=== PATIENT | female | born 1960 | race Two or more races ===

== ENCOUNTER 2017-03-08 16:26 | Inpatient (IN) | payer OTHER ==
[~2017-03-08] VITALS: Ht 152.4 cm; Wt 74.5 kg
[2017-03-08 17:00] VITALS: BP 150/64; PULSE 94; RESP 18
[2017-03-08] MEDS: HYDROCODONE/APAP (10/325) TAB PO PRN ×2 (17:11→21:09)
[2017-03-08 17:38] LABS: ADD UMIC YES; URINE BILIRUBIN (Dip) NEGATIVE (NEGATIVE); URINE BLOOD (Dip) TRACE (NEGATIVE); URINE COLOR LT. YELLOW (YELLOW); URINE GLUCOSE (Dip) NEGATIVE (NEGATIVE); URINE KETONES (Dip) NEGATIVE (NEGATIVE); URINE LEUKOCYTE ESTERASE (Dip) TRACE (NEGATIVE); URINE NITRITE (Dip) NEGATIVE (NEGATIVE); URINE TOTAL PROTEIN (Dip) NEGATIVE (NEGATIVE); URINE UROBILINOGEN (Dip) 0.2 E.U./dL (0.1-1.0)
[2017-03-08] MEDS: RIVAROXABAN 10 MG TABLET PO SCH (17:55)
[2017-03-08] MEDS: metFORMIN 500 MG TAB PO SCH (17:56)
[2017-03-08] MEDS ORDERED: GLUCAGON 1 MG INJ IM PRN (18:00)
[2017-03-08] MEDS ORDERED: DEXTROSE 50% 50 ML SYRINGE IV PRN ×2 (18:00)
[2017-03-08] MEDS ORDERED: GLUCOSE GEL 15 GRAM TUBE PO PRN ×2 (18:00)
[2017-03-08] MEDS: Insulin NOVOLOG SS MODERATE Algorithm (SS with meals and bedtime) SC SCH ×2 (18:00→21:00)
[2017-03-08] MEDS ORDERED: GLUCOSE GEL 15 GRAM TUBE BUCCAL PRN (18:00)
[2017-03-08 18:03] LABS: BACTERIA,URINE FEW; URINE RBCS 0-2 /HPF (0)
[2017-03-08 20:00] VITALS: BP 134/63; RESP 18
[2017-03-08] MEDS: BUSPIRONE 5 MG TAB PO SCH (20:22)
[2017-03-08] MEDS: ATORVASTATIN 40 MG TAB PO SCH (20:22)
[2017-03-08] MEDS: ZOLPIDEM 5 MG TAB PO PRN (22:05)
[2017-03-09] MEDS: ACCUCHECK AT 2AM (Patients on SS coverage) XX SCH (01:56)
[2017-03-09] MEDS: HYDROCODONE/APAP (10/325) TAB PO PRN ×3 (03:48→19:09)
[2017-03-09] MEDS: PANTOPRAZOLE (EC) 40 MG TAB PO SCH (06:26)
[2017-03-09 07:36] LABS: ADD SCAN DIFF NO
[2017-03-09 07:45] LABS: BASOPHILS % 0.3 % (0.0-2.0); EOSINOPHILS % 0.4 % (0.0-7.0); HEMATOCRIT 30.9 % (37.0-47.0); MEAN CORPUSCULAR HEMOGLOBIN 30.5 pg (29.0-33.0); MEAN CORPUSCULAR HGB CONC 32.4 g/dl (32.0-37.0); MEAN CORPUSCULAR VOLUME 94.2 fl (82.0-101.0); MEAN PLATELET VOLUME 10.4 fl (7.4-10.4); MONOCYTE # 0.7 10^3/ul (0.3-0.9); MONOCYTES % 7.2 % (0.0-11.0); NEUTROPHIL # 6.8 10^3/ul (1.6-7.5); NEUTROPHILS % 70.7 % (39.0-77.0); PLATELET COUNT 314 10^3/UL (140-415); RED BLOOD COUNT 3.28 10^6/ul (4.20-5.40); RED CELL DISTRIBUTION WIDTH 13.2 % (11.5-14.5); WHITE BLOOD COUNT 9.6 10^3/ul (4.8-10.8)
[2017-03-09 07:58] LABS: ALBUMIN 3.7 g/dl (3.3-4.9); ALBUMIN/GLOBULIN RATIO 1.05; BILIRUBIN,INDIRECT 1.6 mg/dl (0-1.1); BILIRUBIN,TOTAL 1.6 mg/dl (0.2-1.3); CALCIUM 8.8 mg/dl (8.4-10.2); CREATININE 0.57 mg/dl (0.44-1.00); POTASSIUM 3.8 mmol/L (3.5-5.1); TOTAL PROTEIN 7.2 g/dl (6.1-8.1)
[2017-03-09] MEDS: metFORMIN 500 MG TAB PO SCH ×2 (07:59→17:27)
[2017-03-09 08:00] VITALS: BP 131/72; PULSE 92; RESP 18
[2017-03-09] MEDS: Insulin NOVOLOG SS MODERATE Algorithm (SS with meals and bedtime) SC SCH ×4 (08:02→20:20)
[2017-03-09] MEDS: SERTRALINE 50 MG TAB PO SCH (09:03)
[2017-03-09] MEDS: BUSPIRONE 5 MG TAB PO SCH ×2 (09:03→20:16)
[2017-03-09] MEDS: MELOXICAM 15 MG TAB PO SCH (09:03)
[2017-03-09] MEDS ORDERED: HYDROCODONE/APAP (10/325) TAB PO PRN (09:30)
[2017-03-09] MEDS: oxyCODONE 5 MG TAB PO PRN ×2 (13:14→22:00)
--- NOTE | 2017-03-09 13:32 | HP ---
DATE OF ADMISSION: 03/08/2017 PHYSICAL MEDICINE AND REHABILITATION HISTORY AND PHYSICIAN/PHYSICIAN POST- ADMISSION ASSESSMENT DATE OF VISIT: 03/09/2017 REHABILITATION IMPAIRMENT GROUP: Status post left total knee replacement. CHIEF COMPLAINT: Impaired mobility, left knee pain. HISTORY OF PRESENT ILLNESS: This is an obese 56-year-old female with past medical history significant for hypertension, hyperlipidemia, diabetes mellitus type 2, history of anxiety and depression, and osteoarthritis, who also has history of a work related injury to her left knee originally in January 2012, with progressively worsening left knee pain and worsening overall mobility that failed conservative treatment and elected to proceed with left knee surgery. The patient went to the OR on 03/04/2016 and underwent left total knee replacement. No reported intraoperative complications. Postoperatively, she is recommended full weightbearing with left lower extremity knee immobilizer when out of bed. Her postoperative course was complicated by anemia as well as significant postoperative pain requiring IV pain medications and followed by pain management team. The patient was noted to have a significant overall functional decline with physical and occupational therapies. Currently, she is requiring moderate assistance for most of her ADLs as well as her basic mobility and ambulating 60 feet with a walker. Due to her overall significant functional decline and ongoing medical comorbidities, she was thought to benefit from acute inpatient rehabilitation. PAST MEDICAL AND PAST SURGICAL HISTORY: As stated in history of present illness including history of hypertension, diabetes, hyperlipidemia, obesity, history of anxiety, depression and history of osteoarthritis. FAMILY HISTORY: Noncontributory. SOCIAL HISTORY: Denies current toxic habits. The patient reports living with her in a first floor apartment. The patient reports she was previously independent for all functional mobility and self-care ADLs and used a cane for ambulation. MEDICATIONS ON ADMISSION: 1. Pat[place] 10/325mg, 1 tablet q.4 hours as needed for pain. 2. Meloxicam 15 mg oral daily. 3. Zoloft 50 mg oral daily. 4. Protonix 40 mg daily. 5. Lipitor 40 mg oral at bedtime. 6. BuSpar 15 mg oral twice daily. 7. Insulin sliding scale. 8. Metformin 1000 mg oral twice daily. 9. Xarelto 10 mg oral daily. 10. Atarax 10 mg q.6 hours as needed for itching. 11. Ambien as needed. ALLERGIES: NO KNOWN DRUG ALLERGIES. LABORATORY DATA: Admission labs today show hemoglobin 10, hematocrit 30.9, WBC 9.6, platelets 314. Sodium 136, potassium 3.8, BUN 15, creatinine 0.57, total bilirubin 1.6, indirect bilirubin 1.6, alkaline phosphatase 133. REVIEW OF SYSTEMS: CONSTITUTIONAL: Denies fevers or chills. EYES: Denies pain or discharge. EARS, NOSE AND THROAT: Denies changes in hearing, no difficulty swallowing. RESPIRATORY: Denies shortness of breath, no cough. CARDIOVASCULAR: No chest pain, no palpitations. GASTROINTESTINAL: Denies abdominal pain, no nausea or vomiting. Reports last bowel movement yesterday. GENITOURINARY: Denies dysuria or hematuria. NEUROLOGICAL: Denies any new focal weakness or new paresthesias. MUSCULOSKELETAL: Reports severe pain in the left knee as well as generalized pain throughout. SKIN: Denies new rashes or itching. PSYCHIATRIC: Significant for history of anxiety and depression. Review of systems otherwise negative. PHYSICAL EXAMINATION: VITAL SIGNS: Blood pressure 134/63, respiratory rate 18, heart rate is 93, temperature 98.6 Fahrenheit, O2 saturation 94% on room air. GENERAL: The patient is obese, awake, alert, in no acute distress. HEENT: Normocephalic, atraumatic. Mucous membranes moist. Sclera anicteric. NECK: Supple, nontender. RESPIRATORY: Lungs are clear to anterior auscultation. No wheezing or crackles. No accessory muscle use. CARDIOVASCULAR: Regular rate and rhythm, audible S1, S2. ABDOMEN: Soft, nontender. Bowel sounds present. No masses palpated. EXTREMITIES: No cyanosis. The left lower extremity is immobilized in a knee immobilizer. There is no significant distal edema. SKIN: The left knee surgical site not examined, has dressing in place. Per pictures has larissa with some surrounding redness, no drainage. PSYCHIATRIC: Oriented c3. Affect and mood currently appear appropriate. NEUROLOGIC/MUSCULOSKELETAL: Overall limited by patient reporting severe overall pain throughout. She has decreased active range of motion in the bilateral shoulders, reports this is chronic. No new joint effusions or joint redness. Antigravity strength overall in the bilateral upper extremities and the right lower extremity. She has active dorsiflexion and plantar flexion on the left and wiggles toes. Left lower extremity proximal testing limited by current knee immobilizer in place and pain. She denies any new sensory changes. IMPRESSION: 1. Status post left knee work related injury with left knee pain, failing conservative treatment, now status post left total knee replacement. 2. Impaired mobility, gait and balance. 3. Impaired self-care activities of daily living. 4. Acute postoperative pain on top of baseline chronic pain syndrome. 5. Obesity. 6. Anemia. 7. Hypertension. 8. Hyperlipidemia. 9. Diabetes mellitus type 2. 10. Anxiety and depression PLAN: 1. The patient will be admitted for inpatient comprehensive interdisciplinary rehabilitation to address impairments and medical conditions listed above, while assessing equipment needs and compensatory strategies with coordinated interdisciplinary services that will include physical and occupational therapies and close monitoring and treatment with 24-hour rehabilitation nursing. The patient is anticipated to be able to participate 3 hours daily of physical and occupational therapies for at least 5 out of 7 days per week. This program will be performed under the direction of frameman. 2. Begin physical therapy for bed mobility, transfers, balance training, gait training with assistive devices as needed. 3. Begin occupational therapy for activities of daily living, functional transfers, adaptive equipment evaluation. 4. Rehabilitation nursing to provide the patient education regarding current medications as they relate to medical illness. Monitor blood sugars. Monitor for signs or symptoms of hyper or hypoglycemia. Monitor pain. Monitor bowel and bladder programs and administer such programs and reinforce those activities with therapies. 5. Dr. Becerra and associates to follow for management of medical comorbidities. 6. For hypertension, continue current medical management. We will monitor blood pressures and internal medicine to adjust further as needed. 7. For diabetes mellitus, Internal medicine is to medically manage. Monitor blood sugars. 8. For acute postoperative pain with chronic pain syndrome at baseline, currently her pain appears uncontrolled. We will increase the [place] to 2 tabs for severe pain and also add immediate release oxycodone as needed and adjust further as needed. May benefit from starting a longer acting agent. Will monitor. 9. For anemia, monitor hemoglobin and hematocrit. Internal medicine to medically manage. 10. For deep venous thrombosis prophylaxis, she is on Xarelto. 11. For gastrointestinal prophylaxis, continue proton pump inhibitor. 12. For anxiety and depression, continue current medical management and will closely monitor mood. REHABILITATION GOALS: Improve bed mobility, transfers, gait and self-care ADLs to at least supervision level with assistive device and adaptive equipment as needed. ESTIMATED LENGTH OF STAY: Approximately 10 to 14 days. Her case will be discussed at the weekly interdisciplinary conference. ANTICIPATED DISPOSITION: Home with family. PROGNOSIS: At the current time, this inpatient hospital rehabilitation stay is medically necessary to achieve important health and functional goals. The patient requires frequent physician visits, 24-hour rehabilitation nursing and a coordinated intensive rehabilitation program as described above to address complex medical, nursing and rehabilitation needs. The patient has a good prognosis for benefiting from this program and returning to home and community. REHABILITATION PHYSICIAN POST-ADMISSION ASSESSMENT REVIEW: I have had the opportunity to examine the patient within 24 hours of admission and have reviewed the preadmission assessment and find it consistent with my examination and evaluation of the patient. I confirm that this patient is appropriate for admission and treatment in this inpatient rehabilitation hospital, needs intense interdisciplinary rehabilitation care and is expected to achieve meaningful goals within a reasonable period of time that are consistent with the planned discharge disposition as noted above. Dictated By: DOUG KENT MD, RA/KACI Conf#: [id number] DID#: [id number] MTDD
[2017-03-09] MEDS: RIVAROXABAN 10 MG TABLET PO SCH (17:27)
[2017-03-09 20:00] VITALS: BP 134/74; PULSE 84; RESP 18
[2017-03-09] MEDS: ATORVASTATIN 40 MG TAB PO SCH (20:16)
[2017-03-09] MEDS: ZOLPIDEM 5 MG TAB PO PRN (22:48)
[2017-03-10] MEDS: ACCUCHECK AT 2AM (Patients on SS coverage) XX SCH (02:00)
[2017-03-10] MEDS: PANTOPRAZOLE (EC) 40 MG TAB PO SCH (06:59)
[2017-03-10 07:30] VITALS: BP 134/63; RESP 18
[2017-03-10] MEDS: Insulin NOVOLOG SS MODERATE Algorithm (SS with meals and bedtime) SC SCH ×4 (07:35→21:00)
[2017-03-10] MEDS: oxyCODONE 5 MG TAB PO PRN ×2 (07:46→15:44)
[2017-03-10] MEDS: metFORMIN 500 MG TAB PO SCH ×2 (07:47→17:50)
[2017-03-10] MEDS: SERTRALINE 50 MG TAB PO SCH (08:42)
[2017-03-10] MEDS: BUSPIRONE 5 MG TAB PO SCH ×2 (08:42→19:55)
[2017-03-10] MEDS: MELOXICAM 15 MG TAB PO SCH (08:43)
--- NOTE | 2017-03-10 09:53 | CONS ---
Date/Time of Note Date/Time of Note DATE: 03/10/17 TIME: 09:37 Consult Date/Type/Reason Admit Date/Time Mar 08, 2017 at 16:26 Initial Consult Date Subjective This is a 56-year-old female with past medical history significant for hypertension, hyperlipidemia, diabetes mellitus type 2, history of anxiety and depression, and osteoarthritis who presented with failed conservative treatment and elected to proceed with left knee surgery. The patient went to the OR on and underwent left total knee replacement. No reported intraoperative complications. : Admission labs today show hemoglobin 10, hematocrit 30.9, WBC 9.6, platelets 314. Sodium 136, potassium 3.8, BUN 15, creatinine 0.57, total bilirubin 1.6, indirect bilirubin 1.6, alkaline phosphatase 133. REVIEW OF SYSTEMS: CONSTITUTIONAL: Denies fevers or chills. EYES: Denies pain or discharge. EARS, NOSE AND THROAT: Denies changes in hearing, no difficulty swallowing. RESPIRATORY: Denies shortness of breath, no cough. CARDIOVASCULAR: No chest pain, no palpitations. GASTROINTESTINAL: Denies abdominal pain, no nausea or vomiting. Reports last bowel movement yesterday. GENITOURINARY: Denies dysuria or hematuria. NEUROLOGICAL: Denies any new focal weakness or new paresthesias. MUSCULOSKELETAL: Reports severe pain in the left knee. SKIN: Denies new rashes or itching. PSYCHIATRIC: Significant for history of anxiety and depression. A 10-point review of systems otherwise negative. PHYSICAL EXAMINATION: GENERAL: The patient is obese, awake, alert, in no acute distress. HEENT: Normocephalic, atraumatic. Mucous membranes moist. NECK: Supple, nontender. RESPIRATORY: Lungs are clear to anterior auscultation. No wheezing or crackles. CARDIOVASCULAR: Regular rate and rhythm, audible S1, S2. ABDOMEN: Soft, nontender. Bowel sounds present. No masses palpated. EXTREMITIES: No cyanosis. The left lower extremity is immobilized in a knee immobilizer. There is no distal edema. SKIN: The left knee surgical site not examined, has dressing in place. PSYCHIATRIC: Affect and mood currently appear appropriate. NEUROLOGIC/MUSCULOSKELETAL: Overall limited by patient reporting severe overall pain throughout. She has decreased active range of motion in the bilateral shoulders, reports this is chronic. No new joint effusions or joint redness. Antigravity strength overall in the bilateral upper extremities and the right lower extremity. She has active dorsiflexion on the left and plantar flexion. Left lower extremity limited by current knee immobilizer in place and pain. She denies any new sensory changes. Objective Vital Signs Date Time Temp Pulse Resp B/P Pulse Ox O2 Delivery O2 Flow Rate FiO2 03/09/17 20:00 98.4 84 18 134/74 97 Room Air Intake and Output 03/09/17 03/09/17 03/10/17 15:00 23:00 07:00 Intake Total 1200 ml 580 ml Output Total 850 ml Balance 1200 ml -270 ml Results/Medications Result Diagram: 03/09/1762403/09/17624 Results 24 hrs Laboratory Tests Test 03/09/17 11:57 03/09/17 17:17 03/09/17 20:19 03/10/17 07:39 Bedside Glucose 145 151 113 142 Medications Current Medications Acetaminophen/ Hydrocodone Bitart ([place] (10/325)) 1 tab Q4H PRN PO PAIN Last administered on 03/09/17 19:09; Admin Dose 1 TAB; Start 03/08/17 at 17:00 Rivaroxaban (Xarelto) 10 mg DAILY@17 PO Last administered on 03/09/17 17:27; Admin Dose 10 MG; Start 03/08/17 at 17:30 Atorvastatin Calcium (Lipitor) 40 mg HS PO Last administered on 03/09/17 20:16 ; Admin Dose 40 MG; Start 03/08/17 at 21:00 Buspirone HCl (Buspar) 15 mg BID PO Last administered on 03/10/17 08:42; Admin Dose 15 MG; Start 03/08/17 at 21:00 Hydroxyzine HCl (Atarax) 10 mg Q6H PRN PO ITCHING; Start 03/08/17 at 17:30 Meloxicam (Mobic) 15 mg DAILY PO Last administered on 03/10/17 08:43; Admin Dose 15 MG; Start 03/09/17 at 09:00 Pantoprazole (Protonix Tab) 40 mg DAILY@06 PO Last administered on 03/10/17 06: 59; Admin Dose 40 MG; Start 03/09/17 at 06:00 Sertraline HCl (Zoloft) 50 mg DAILY PO Last administered on 03/10/17 08:42; Admin Dose 50 MG; Start 03/09/17 at 09:00 Zolpidem Tartrate (Ambien) 10 mg HS PRN PO INSOMNIA Last administered on 22:48; Admin Dose 10 MG; Start 03/08/17 at 17:30 Diagnostic Test (Pha) (Accu-Chek) 1 ea 02 XX ; Start 03/09/17 at 02:00 Miscellaneous Information 1 ea NOTE XX ; Start 03/08/17 at 18:00 Glucose (Glutose) 15 gm Q15M PRN PO DECREASED GLUCOSE; Start 03/08/17 at 18:00 Glucose (Glutose) 22.5 gm Q15M PRN PO DECREASED GLUCOSE; Start 03/08/17 at 18:00 Dextrose (D50w Syringe) 25 ml Q15M PRN IV DECREASED GLUCOSE; Start 03/08/17 at 18:00 Dextrose (D50w Syringe) 50 ml Q15M PRN IV DECREASED GLUCOSE; Start 03/08/17 at 18:00 Glucagon (Glucagen) 1 mg Q15M PRN IM DECREASED GLUCOSE; Start 03/08/17 at 18:00 Glucose (Glutose) 15 gm Q15M PRN BUCCAL DECREASED GLUCOSE; Start 03/08/17 at 18: 00 Acetaminophen/ Hydrocodone Bitart ([place] (10/325)) 2 tab Q4H PRN PO severe pain ; Start 03/09/17 at 13:30 Oxycodone HCl (Roxicodone) 10 mg Q6H PRN PO PAIN Last administered on 03/10/17 07:46; Admin Dose 10 MG; Start 03/09/17 at 13:00 Assessment/Plan Chief Complaint/Hosp Course 1. Status post left knee work related injury with left knee pain, failing conservative treatment, now status post left total knee replacement. cont analgesia. prophylaxis 2. Anemia. likely blood loss from surgery. if worsens, will investigate for other blood loss. 3. Hypertension. cont meds. 4. Hyperlipidemia. 5. Diabetes mellitus type 2. cont ssi. 6. depression- cont meds Problems: IVELISSE CALDERON MD Mar 10, 2017 09:48
--- NOTE | 2017-03-10 10:13 | PN ---
Date/Time of Note Date/Time of Note DATE: 03/10/17 TIME: 10:10 Assessment/Plan VTE Prophylaxis VTE Prophylaxis Intervention: other (xarelto) Lines/Catheters Urinary Cath still in place: No Assessment/Plan Assessment/Plan 1. Status post left knee work related injury with left knee pain, failing conservative treatment, now status post left total knee replacement with impaired mobility/gait/ADLs. Continue PT/OT. Moderate to maximal assistance for bed mobility/transfers. 2. Acute postoperative pain on top of baseline chronic pain syndrome. Pain improved with adjusting regimen yesterday, continue to monitor and adjust further as needed. 3. Obesity. 4. Anemia. Monitor hemoglobin/hematocrit. 5. Hypertension. Monitor BP, overall controlled. Continue current medical management. 6. Hyperlipidemia. Continue statin. 7. Diabetes mellitus type 2. Blood sugars controlled. Continue to monitor. Internal medicine medically managing. 8. History of anxiety and depression. Continue medical management. Subjective 24 Hr Interval Summary Free Text/Dictation Rehab progress note Subjective: Reports improvement in left knee pain with adjustment of pain regimen yesterday, currently moderate pain level. ROS: Denies chest pain, no shortness of breath, no abdominal pain, no nausea, no vomiting, no chills. Reports moving her bowels. Exam/Review of Systems Vital Signs Vitals Vital Signs Date Time Temp Pulse Resp B/P Pulse Ox O2 Delivery O2 Flow Rate FiO2 03/09/17 20:00 98.4 84 18 134/74 97 Room Air Intake and Output 03/09/17 03/09/17 03/10/17 15:00 23:00 07:00 Intake Total 1200 ml 580 ml Output Total 850 ml Balance 1200 ml -270 ml Exam General: Awake, alert, no acute distress CV: Regular rate, s1s2 Lungs: Clear to anterior auscultation, no wheezing Abdomen soft, nontender Extremities without cyanosis. LLE knee surgical site with dressing and wrapping in place. Neuro: No new focal changes. Follows simple commands. Results Result Diagram: 03/09/1725 03/09/1725 Results 24 hrs Laboratory Tests Test 03/09/17 11:57 03/09/17 17:17 03/09/17 20:19 03/10/17 07:39 Bedside Glucose 145 151 113 142 Medications Medications Current Medications Acetaminophen/ Hydrocodone Bitart ([place] (10/325)) 1 tab Q4H PRN PO PAIN Last administered on 03/09/17 19:09; Admin Dose 1 TAB; Start 03/08/17 at 17:00 Rivaroxaban (Xarelto) 10 mg DAILY@17 PO Last administered on 03/09/17 17:27; Admin Dose 10 MG; Start 03/08/17 at 17:30 Atorvastatin Calcium (Lipitor) 40 mg HS PO Last administered on 03/09/17 20:16 ; Admin Dose 40 MG; Start 03/08/17 at 21:00 Buspirone HCl (Buspar) 15 mg BID PO Last administered on 03/10/17 08:42; Admin Dose 15 MG; Start 03/08/17 at 21:00 Hydroxyzine HCl (Atarax) 10 mg Q6H PRN PO ITCHING; Start 03/08/17 at 17:30 Meloxicam (Mobic) 15 mg DAILY PO Last administered on 03/10/17 08:43; Admin Dose 15 MG; Start 03/09/17 at 09:00 Pantoprazole (Protonix Tab) 40 mg DAILY@06 PO Last administered on 03/10/17 06: 59; Admin Dose 40 MG; Start 03/09/17 at 06:00 Sertraline HCl (Zoloft) 50 mg DAILY PO Last administered on 03/10/17 08:42; Admin Dose 50 MG; Start 03/09/17 at 09:00 Zolpidem Tartrate (Ambien) 10 mg HS PRN PO INSOMNIA Last administered on 22:48; Admin Dose 10 MG; Start 03/08/17 at 17:30 Diagnostic Test (Pha) (Accu-Chek) 1 ea 02 XX ; Start 03/09/17 at 02:00 Miscellaneous Information 1 ea NOTE XX ; Start 03/08/17 at 18:00 Glucose (Glutose) 15 gm Q15M PRN PO DECREASED GLUCOSE; Start 03/08/17 at 18:00 Glucose (Glutose) 22.5 gm Q15M PRN PO DECREASED GLUCOSE; Start 03/08/17 at 18:00 Dextrose (D50w Syringe) 25 ml Q15M PRN IV DECREASED GLUCOSE; Start 03/08/17 at 18:00 Dextrose (D50w Syringe) 50 ml Q15M PRN IV DECREASED GLUCOSE; Start 03/08/17 at 18:00 Glucagon (Glucagen) 1 mg Q15M PRN IM DECREASED GLUCOSE; Start 03/08/17 at 18:00 Glucose (Glutose) 15 gm Q15M PRN BUCCAL DECREASED GLUCOSE; Start 03/08/17 at 18: 00 Acetaminophen/ Hydrocodone Bitart ([place] (10/325)) 2 tab Q4H PRN PO severe pain ; Start 03/09/17 at 13:30 Oxycodone HCl (Roxicodone) 10 mg Q6H PRN PO PAIN Last administered on 03/10/17 07:46; Admin Dose 10 MG; Start 03/09/17 at 13:00 DOUG KENT Mar 10, 2017 10:13
[2017-03-10] MEDS: HYDROCODONE/APAP (10/325) TAB PO PRN ×2 (12:25→19:51)
--- NOTE | 2017-03-10 14:31 | CONS ---
DATE OF ADMISSION: 03/08/2017 DATE OF CONSULTATION: 03/09/2017 INTERNAL MEDICINE CONSULTATION HISTORY OF PRESENT ILLNESS: The patient is a 56-year-old female with past medical history significa nt for hypertension, hyperlipidemia, diabetes, anxiety, depression, osteoarthritis, who presented wi th failure of conservative management, status post open reduction internal fixation with left total knee replacement on 03/04/2016. The patient's hospital course was uncomplicated. She is mostly com plaining of pain now. She is tolerating physical therapy nonetheless. She denies fevers, chills, n ausea, vomiting, chest pain, shortness of breath. PAST MEDICAL HISTORY: Significant for hypertension, diabetes, hyperlipidemia, obesity, anxiety, dep ression, osteoarthritis. MEDICATIONS FROM HOME: Include: 1. Orange. 2. Meloxicam. 3. Zoloft. 4. Protonix. 5. Lipitor. 6. BuSpar. 7. Sliding scale insulin. 8. Metformin. 9. Xarelto. 10. Atarax 11. Ambien. ALLERGIES: PATIENT HAS NO KNOWN ALLERGIES. SOCIAL HISTORY: Does not smoke, drink or use ____ drugs. FAMILY HISTORY: No history of kidney disease. REVIEW OF SYSTEMS: A 14-point review of systems is attempted and negative unless otherwise stated. PHYSICAL EXAMINATION: VITAL SIGNS: We see temperature 99.2, blood pressure 131/72. HEENT: Normocephalic, atraumatic. Pupils are equal, round, and reactive to light. Oropharynx is m oist. NECK: Supple. HEART: Regular rate and rhythm. LUNGS: Clear to auscultation. ABDOMEN: Soft, nontender ____. LABORATORY EVALUATION: White count 9.6, hemoglobin 10, hematocrit 31. Sodium is 136, potassium 3.8 , BUN 15, creatinine 0.6. UA is reviewed on microscopy. DIAGNOSTIC DATA: Chest x-ray is reviewed by radiologist. IMPRESSION: 1. Postoperative total knee replacement from 03/04/2017. The patient was admitted to the [facility]hab [facility] supervised by the physical medicine and rehab team. Continue analgesia prophylaxis with Xarelto. 2. Anemia, likely blood loss from surgery. If worsens, we will investigate for other blood loss. 3. Hypertension. Continue meds. 4. Hyperlipidemia. Continue ____. 5. Diabetes type 2. Continue sliding scale insulin here in the facility. 6. Depression. Continue meds. Monitor for signs and symptoms. Dictated By: IVELISSE CALDERON MD DF/KACI Conf#: [id number] DID#: [id number]
[2017-03-10] MEDS: RIVAROXABAN 10 MG TABLET PO SCH (17:50)
[2017-03-10] MEDS: ATORVASTATIN 40 MG TAB PO SCH (19:55)
[2017-03-10 20:32] VITALS: BP 137/65; RESP 18
[2017-03-10] MEDS: ZOLPIDEM 5 MG TAB PO PRN (22:17)
[2017-03-11] MEDS: oxyCODONE 5 MG TAB PO PRN ×4 (01:58→23:05)
[2017-03-11] MEDS: ACCUCHECK AT 2AM (Patients on SS coverage) XX SCH (02:00)
[2017-03-11] MEDS: PANTOPRAZOLE (EC) 40 MG TAB PO SCH (05:02)
[2017-03-11] MEDS: HYDROCODONE/APAP (10/325) TAB PO PRN ×4 (05:03→20:11)
[2017-03-11 07:30] VITALS: BP 123/62; RESP 18
[2017-03-11] MEDS: Insulin NOVOLOG SS MODERATE Algorithm (SS with meals and bedtime) SC SCH ×4 (07:35→20:08)
[2017-03-11] MEDS: metFORMIN 500 MG TAB PO SCH ×2 (08:08→17:17)
[2017-03-11] MEDS: SERTRALINE 50 MG TAB PO SCH (08:08)
[2017-03-11] MEDS: BUSPIRONE 5 MG TAB PO SCH ×2 (08:10→20:11)
[2017-03-11] MEDS: MELOXICAM 15 MG TAB PO SCH (08:10)
--- NOTE | 2017-03-11 10:18 | PN ---
DATE: 03/11/2017 SUBJECTIVE: The patient complaining about pain in her left knee, otherwise no acute events noted. No hemoptysis, hematemesis or hematochezia. OBJECTIVE: VITAL SIGNS: Blood pressure 137/65, respirations 18, pulse 82, temperature 98.6. HEENT: Head is normocephalic. NECK: Supple. HEART: Regular rate. LUNGS: Show diminished breath sounds at the base. ABDOMEN: Soft, nontender to palpation without rebound or guarding. EXTREMITIES: Negative for clubbing, cyanosis, or edema in left leg. Right knee has dressing clean, dry, intact. NEUROLOGIC: No focal deficits. LABORATORY DATA: Has been reviewed. No new labs. ASSESSMENT AND PLAN: 1. Status post total left knee replacement. The patient is currently stable. Continue PT, OT. Co ntinue pain medication. Continue DVT prophylaxis with Xarelto. 2. Anemia. Continue to monitor hemoglobin and hematocrit levels. 3. Hypertension. Blood pressure controlled. Continue current medical management. 4. Dyslipidemia. Continue statin therapy. 5. Diabetes. Continue Accu-Cheks, insulin sliding scale. Continue metformin. 6. Depression. Continue current medical management. 7. Gastrointestinal and deep venous thrombosis prophylaxis. Continue proton pump inhibitor and Xar elto. Dictated By: LINDSEY MERCER/KACI Conf#: [id number] DID#: [id number]
--- NOTE | 2017-03-11 12:11 | CONS ---
Date/Time of Note Date/Time of Note DATE: 03/11/17 TIME: 12:10 Consult Date/Type/Reason Admit Date/Time Mar 08, 2017 at 16:26 Initial Consult Date Objective Vital Signs Date Time Temp Pulse Resp B/P Pulse Ox O2 Delivery O2 Flow Rate FiO2 03/10/17 20:32 98.6 82 18 137/65 96 03/09/17 20:00 Room Air Intake and Output 03/10/17 03/10/17 03/11/17 15:00 23:00 07:00 Intake Total 860 ml 450 ml Balance 860 ml 450 ml INTERDISCIPLINARY TEAM CONFERENCE BOWEL- Cont BLADDER-Cont SKIN- intact OT- DRESSING-mod/max BATHING-mod TOILETING-max PT- BED MOBILITY-max TRANSFERS-max AMBULATION-mod 40 feet A/P- Interdisciplinary team conference held today. Please see interdisciplinary sheet. Working toward d.c. on 03/16 with post discharge follow up of physical therapy, occupational therapy. Results/Medications Result Diagram: 03/09/17 0625 03/09/17 0625 Results 24 hrs Laboratory Tests Test 03/10/17 12:18 03/10/17 17:22 03/10/17 19:53 03/11/17 07:41 Bedside Glucose 137 137 135 132 Medications Current Medications Acetaminophen/ Hydrocodone Bitart ([place] (10/325)) 1 tab Q4H PRN PO PAIN Last administered on 03/09/17 19:09; Admin Dose 1 TAB; Start 03/08/17 at 17:00 Rivaroxaban (Xarelto) 10 mg DAILY@17 PO Last administered on 03/10/17 17:50; Admin Dose 10 MG; Start 03/08/17 at 17:30 Atorvastatin Calcium (Lipitor) 40 mg HS PO Last administered on 03/10/17 19:55 ; Admin Dose 40 MG; Start 03/08/17 at 21:00 Buspirone HCl (Buspar) 15 mg BID PO Last administered on 03/11/17 08:10; Admin Dose 15 MG; Start 03/08/17 at 21:00 Hydroxyzine HCl (Atarax) 10 mg Q6H PRN PO ITCHING; Start 03/08/17 at 17:30 Meloxicam (Mobic) 15 mg DAILY PO Last administered on 03/11/17 08:10; Admin Dose 15 MG; Start 03/09/17 at 09:00 Pantoprazole (Protonix Tab) 40 mg DAILY@06 PO Last administered on 03/11/17 05 :02; Admin Dose 40 MG; Start 03/09/17 at 06:00 Sertraline HCl (Zoloft) 50 mg DAILY PO Last administered on 03/11/17 08:08; Admin Dose 50 MG; Start 03/09/17 at 09:00 Zolpidem Tartrate (Ambien) 10 mg HS PRN PO INSOMNIA Last administered on 22:17; Admin Dose 10 MG; Start 03/08/17 at 17:30 Diagnostic Test (Pha) (Accu-Chek) 1 ea 02 XX ; Start 03/09/17 at 02:00 Miscellaneous Information 1 ea NOTE XX ; Start 03/08/17 at 18:00 Glucose (Glutose) 15 gm Q15M PRN PO DECREASED GLUCOSE; Start 03/08/17 at 18:00 Glucose (Glutose) 22.5 gm Q15M PRN PO DECREASED GLUCOSE; Start 03/08/17 at 18:00 Dextrose (D50w Syringe) 25 ml Q15M PRN IV DECREASED GLUCOSE; Start 03/08/17 at 18:00 Dextrose (D50w Syringe) 50 ml Q15M PRN IV DECREASED GLUCOSE; Start 03/08/17 at 18:00 Glucagon (Glucagen) 1 mg Q15M PRN IM DECREASED GLUCOSE; Start 03/08/17 at 18:00 Glucose (Glutose) 15 gm Q15M PRN BUCCAL DECREASED GLUCOSE; Start 03/08/17 at 18: 00 Acetaminophen/ Hydrocodone Bitart ([place] (10/325)) 2 tab Q4H PRN PO severe pain Last administered on 03/11/17 10:34; Admin Dose 2 TAB; Start 03/09/17 at 13 :30 Oxycodone HCl (Roxicodone) 10 mg Q6H PRN PO PAIN Last administered on 08:10; Admin Dose 10 MG; Start 03/09/17 at 13:00 BIN STEEL MD Mar 11, 2017 12:11 08:10; Admin Dose 10 MG; Start 03/09/17 at 13:00 BIN STEEL MD Mar 11, 2017 12:11
[2017-03-11] MEDS: RIVAROXABAN 10 MG TABLET PO SCH (17:17)
[2017-03-11 20:10] VITALS: BP 118/59; RESP 18
[2017-03-11] MEDS: ATORVASTATIN 40 MG TAB PO SCH (20:11)
[2017-03-11] MEDS: ZOLPIDEM 5 MG TAB PO PRN (22:16)
[2017-03-12] MEDS: ACCUCHECK AT 2AM (Patients on SS coverage) XX SCH (02:00)
[2017-03-12] MEDS: HYDROCODONE/APAP (10/325) TAB PO PRN ×5 (06:26→20:00)
[2017-03-12] MEDS: PANTOPRAZOLE (EC) 40 MG TAB PO SCH (06:26)
[2017-03-12 06:56] LABS: ADD SCAN DIFF NO
[2017-03-12 07:02] LABS: BASOPHILS % 0.2 % (0.0-2.0); EOSINOPHILS # 0.2 10^3/ul (0.0-0.5); EOSINOPHILS % 2.1 % (0.0-7.0); HEMATOCRIT 29.6 % (37.0-47.0); HEMOGLOBIN 9.6 g/dl (12.0-16.0); LYMPHOCYTES # 2.5 10^3/ul (0.8-2.9); LYMPHOCYTES % 28.7 % (15.0-51.0); MEAN CORPUSCULAR HEMOGLOBIN 31.1 pg (29.0-33.0); MEAN CORPUSCULAR HGB CONC 32.4 g/dl (32.0-37.0); MEAN CORPUSCULAR VOLUME 95.8 fl (82.0-101.0); MEAN PLATELET VOLUME 9.7 fl (7.4-10.4); MONOCYTE # 0.7 10^3/ul (0.3-0.9); MONOCYTES % 7.8 % (0.0-11.0); NEUTROPHIL # 5.3 10^3/ul (1.6-7.5); NEUTROPHILS % 60.6 % (39.0-77.0); PLATELET COUNT 407 10^3/UL (140-415); RED BLOOD COUNT 3.09 10^6/ul (4.20-5.40); RED CELL DISTRIBUTION WIDTH 13.2 % (11.5-14.5); WHITE BLOOD COUNT 8.7 10^3/ul (4.8-10.8)
[2017-03-12 07:22] LABS: POTASSIUM 3.9 mmol/L (3.5-5.1)
[2017-03-12 07:25] LABS: CREATININE 0.63 mg/dl (0.44-1.00)
[2017-03-12 07:26] LABS: MAGNESIUM 1.9 mg/dl (1.7-2.5); PHOSPHORUS 4.3 mg/dl (2.5-4.9)
[2017-03-12 07:34] VITALS: BP 120/61; RESP 18
[2017-03-12] MEDS: Insulin NOVOLOG SS MODERATE Algorithm (SS with meals and bedtime) SC SCH ×4 (08:24→20:01)
[2017-03-12] MEDS: BUSPIRONE 5 MG TAB PO SCH ×2 (08:25→20:00)
[2017-03-12] MEDS: MELOXICAM 15 MG TAB PO SCH (08:25)
[2017-03-12] MEDS: metFORMIN 500 MG TAB PO SCH ×2 (08:25→17:27)
[2017-03-12] MEDS: SERTRALINE 50 MG TAB PO SCH (08:25)
[2017-03-12] MEDS: oxyCODONE 5 MG TAB PO PRN ×2 (08:33→23:23)
--- NOTE | 2017-03-12 11:04 | PN ---
DATE: 03/12/2017 SUBJECTIVE: The patient is complaining about pain in her knee, requesting for increase in pain medi cations. No other events noted. OBJECTIVE: VITAL SIGNS: Blood pressure 120/61, respirations 18, pulse 86, temperature 97.9. HEENT: Head is normocephalic. NECK: Supple. HEART: Regular rate. LUNGS: Show diminished breath sounds at the bases. ABDOMEN: Soft, nontender to palpation. No rebound or guarding. EXTREMITIES: Negative for clubbing, cyanosis. No edema. DERMATOLOGIC: No rashes. MUSCULOSKELETAL: The patient has dressing over her left knee. NEUROLOGIC: No change in exam. MEDICATIONS: The patient's medications have been reviewed. LABORATORY DATA: Shows a BMP within normal limits. White count 8.6, hemoglobin 9.6, hematocrit 29. 9, platelet count is 407. ASSESSMENT AND PLAN: 1. Status post total left knee replacement. The patient is currently stable. Continue PT, OT. Co ntinue current pain medications. Will increase [place] to q. 3 hours for severe pain. 2. Anemia. Continue to monitor hemoglobin and hematocrit levels. 3. Hypertension. Blood pressure controlled. Continue current medical management. 4. Dyslipidemia. Continue statin therapy. 5. Diabetes. Continue Accu-Cheks and insulin sliding scale. Continue metformin. 6. Depression. Continue current medical regimen. 7. Gastrointestinal and deep venous thrombosis prophylaxis. Continue proton pump inhibitor and Xar elto. Dictated By: LINDSEY MERCER/KACI Conf#: [id number] DID#: [id number]
--- NOTE | 2017-03-12 12:46 | CONS ---
Date/Time of Note Date/Time of Note DATE: 03/12/17 TIME: 12:46 Consult Date/Type/Reason Admit Date/Time Mar 08, 2017 at 16:26 Subjective In good spirits Objective pulm-cta abd-soft min assist ambulation Vital Signs Date Time Temp Pulse Resp B/P Pulse Ox O2 Delivery O2 Flow Rate FiO2 03/12/17 07:34 97.9 86 18 120/61 97 03/09/17 20:00 Room Air Intake and Output 03/11/17 03/11/17 03/12/17 14:59 22:59 06:59 Intake Total 1200 ml 1200 ml Balance 1200 ml 1200 ml Results/Medications Result Diagram: 03/12/17 0549 03/12/17 0549 Results 24 hrs Laboratory Tests Test 03/11/17 16:48 03/11/17 20:04 03/12/17 05:49 03/12/17 07:33 Bedside Glucose 125 140 151 White Blood Count 8.7 Red Blood Count 3.09 L Hemoglobin 9.6 L Hematocrit 29.6 L Mean Corpuscular Volume 95.8 Mean Corpuscular Hemoglobin 31.1 Mean Corpuscular Hemoglobin Concent 32.4 Red Cell Distribution Width 13.2 Platelet Count 407 # Mean Platelet Volume 9.7 Neutrophils % 60.6 Lymphocytes % 28.7 Monocytes % 7.8 Eosinophils % 2.1 Basophils % 0.2 Nucleated Red Blood Cells % 0.0 Neutrophils # 5.3 Lymphocytes # 2.5 Monocytes # 0.7 Eosinophils # 0.2 Basophils # 0.0 Nucleated Red Blood Cells # 0.0 Sodium Level 138 Potassium Level 3.9 Chloride Level 99 Carbon Dioxide Level 28 Anion Gap 15 Blood Urea Nitrogen 19 Creatinine 0.63 Glucose Level 135 Calcium Level 9.0 Phosphorus Level 4.3 Magnesium Level 1.9 Test 03/12/17 11:58 Bedside Glucose 81 Medications Current Medications Acetaminophen/ Hydrocodone Bitart ([place] (10/325)) 1 tab Q4H PRN PO PAIN Last administered on 03/09/17 19:09; Admin Dose 1 TAB; Start 03/08/17 at 17:00 Rivaroxaban (Xarelto) 10 mg DAILY@17 PO Last administered on 03/11/17 17:17; Admin Dose 10 MG; Start 03/08/17 at 17:30 Atorvastatin Calcium (Lipitor) 40 mg HS PO Last administered on 03/11/17 20:11 ; Admin Dose 40 MG; Start 03/08/17 at 21:00 Buspirone HCl (Buspar) 15 mg BID PO Last administered on 03/12/17 08:25; Admin Dose 15 MG; Start 03/08/17 at 21:00 Hydroxyzine HCl (Atarax) 10 mg Q6H PRN PO ITCHING; Start 03/08/17 at 17:30 Meloxicam (Mobic) 15 mg DAILY PO Last administered on 03/12/17 08:25; Admin Dose 15 MG; Start 03/09/17 at 09:00 Pantoprazole (Protonix Tab) 40 mg DAILY@06 PO Last administered on 03/12/17 06 :26; Admin Dose 40 MG; Start 03/09/17 at 06:00 Sertraline HCl (Zoloft) 50 mg DAILY PO Last administered on 03/12/17 08:25; Admin Dose 50 MG; Start 03/09/17 at 09:00 Zolpidem Tartrate (Ambien) 10 mg HS PRN PO INSOMNIA Last administered on 22:16; Admin Dose 10 MG; Start 03/08/17 at 17:30 Diagnostic Test (Pha) (Accu-Chek) 1 ea 02 XX ; Start 03/09/17 at 02:00 Miscellaneous Information 1 ea NOTE XX ; Start 03/08/17 at 18:00 Glucose (Glutose) 15 gm Q15M PRN PO DECREASED GLUCOSE; Start 03/08/17 at 18:00 Glucose (Glutose) 22.5 gm Q15M PRN PO DECREASED GLUCOSE; Start 03/08/17 at 18:00 Dextrose (D50w Syringe) 25 ml Q15M PRN IV DECREASED GLUCOSE; Start 03/08/17 at 18:00 Dextrose (D50w Syringe) 50 ml Q15M PRN IV DECREASED GLUCOSE; Start 03/08/17 at 18:00 Glucagon (Glucagen) 1 mg Q15M PRN IM DECREASED GLUCOSE; Start 03/08/17 at 18:00 Glucose (Glutose) 15 gm Q15M PRN BUCCAL DECREASED GLUCOSE; Start 03/08/17 at 18: 00 Oxycodone HCl (Roxicodone) 10 mg Q6H PRN PO PAIN Last administered on 08:33; Admin Dose 10 MG; Start 03/09/17 at 13:00 Acetaminophen/ Hydrocodone Bitart ([place] ()) 2 tab Q3 PRN PO severe pain Last administered on 03/12/17 11:08; Admin Dose 2 TAB; Start 03/12/17 at 12:00 Assessment/Plan Additional Assessment/Plan rehab- Left TKR Continue rehab treatment plan Pain- improving HTN BIN ALMANZA MD Mar 12, 2017 12:46
[2017-03-12] MEDS: RIVAROXABAN 10 MG TABLET PO SCH (17:26)
[2017-03-12] MEDS: ATORVASTATIN 40 MG TAB PO SCH (20:00)
[2017-03-12 20:28] VITALS: BP 131/73; RESP 18
[2017-03-12] MEDS: ZOLPIDEM 5 MG TAB PO PRN (22:15)
[2017-03-13] MEDS: ACCUCHECK AT 2AM (Patients on SS coverage) XX SCH (02:00)
[2017-03-13] MEDS: HYDROCODONE/APAP (10/325) TAB PO PRN ×7 (03:40→22:48)
[2017-03-13] MEDS: PANTOPRAZOLE (EC) 40 MG TAB PO SCH (06:47)
[2017-03-13] MEDS: Insulin NOVOLOG SS MODERATE Algorithm (SS with meals and bedtime) SC SCH ×4 (07:28→21:00)
[2017-03-13 08:00] VITALS: BP 116/68; RESP 18
[2017-03-13] MEDS: metFORMIN 500 MG TAB PO SCH ×3 (08:16→18:21)
[2017-03-13] MEDS: MELOXICAM 15 MG TAB PO SCH (08:17)
[2017-03-13] MEDS: SERTRALINE 50 MG TAB PO SCH (08:17)
[2017-03-13] MEDS: BUSPIRONE 5 MG TAB PO SCH ×2 (08:17→20:37)
[2017-03-13] MEDS: oxyCODONE 5 MG TAB PO PRN ×3 (08:22→20:56)
--- NOTE | 2017-03-13 10:28 | PN ---
DATE: 03/13/2017 SUBJECTIVE: The patient is stable, no acute events overnight. The patient's pain is better control led. OBJECTIVE: VITAL SIGNS: Blood pressure 116/68, respirations 18, pulse 81, temperature 98.0. HEENT: Head is normocephalic. NECK: Supple. HEART: Regular rate. LUNGS: Show diminished breath sounds at the base. ABDOMEN: Soft, nontender to palpation without rebound or guarding. EXTREMITIES: Negative for clubbing, cyanosis. No edema. DERMATOLOGIC: No rashes. MUSCULOSKELETAL: The patient has dressing over left knee. NEUROLOGIC: No change in exam. MEDICATIONS: Patient's medication has been reviewed. LABORATORY DATA: Have been reviewed. ASSESSMENT AND PLAN: 1. Status post left knee replacement. Patient is currently stable. Continue PT, OT. Continue curr ent pain medications. 2. Anemia. Continue to monitor hemoglobin and hematocrit levels. 3. Hypertension. Continue current blood pressure regimen. 4. Dyslipidemia. Continue statin therapy. 5. Diabetes. Continue Accu-Cheks and sliding scale. 6. Depression. Continue current medical management. 7. GI and DVT prophylaxis. Continue proton pump inhibitor and Xarelto. Dictated By: LINDSEY MERCER/NTS Conf#: [id number] DID#: [id number]
--- NOTE | 2017-03-13 11:55 | CONS ---
Date/Time of Note Date/Time of Note DATE: 03/13/17 TIME: 11:54 Consult Date/Type/Reason Admit Date/Time Mar 08, 2017 at 16:26 Subjective Pain under adequate control Objective pulm-cta abd-soft cga ambulation Vital Signs Date Time Temp Pulse Resp B/P Pulse Ox O2 Delivery O2 Flow Rate FiO2 03/13/17 08:00 98.0 81 18 116/68 98 03/09/17 20:00 Room Air Intake and Output 03/12/17 03/12/17 03/13/17 14:59 22:59 06:59 Intake Total 1200 ml 600 ml 1000 ml Output Total 200 ml 400 ml Balance 1000 ml 200 ml 1000 ml Results/Medications Result Diagram: 03/12/17 0549 03/12/17 0549 Results 24 hrs Laboratory Tests Test 03/12/17 11:58 03/12/17 17:15 03/12/17 20:00 03/13/17 07:16 Bedside Glucose 81 136 144 138 Medications Current Medications Acetaminophen/ Hydrocodone Bitart ([place] (10/325)) 1 tab Q4H PRN PO PAIN Last administered on 03/09/17 19:09; Admin Dose 1 TAB; Start 03/08/17 at 17:00 Rivaroxaban (Xarelto) 10 mg DAILY@17 PO Last administered on 03/12/17 17:26; Admin Dose 10 MG; Start 03/08/17 at 17:30 Atorvastatin Calcium (Lipitor) 40 mg HS PO Last administered on 03/12/17 20:00 ; Admin Dose 40 MG; Start 03/08/17 at 21:00 Buspirone HCl (Buspar) 15 mg BID PO Last administered on 03/13/17 08:17; Admin Dose 15 MG; Start 03/08/17 at 21:00 Hydroxyzine HCl (Atarax) 10 mg Q6H PRN PO ITCHING; Start 03/08/17 at 17:30 Meloxicam (Mobic) 15 mg DAILY PO Last administered on 03/13/17 08:17; Admin Dose 15 MG; Start 03/09/17 at 09:00 Pantoprazole (Protonix Tab) 40 mg DAILY@06 PO Last administered on 03/13/17 06 :47; Admin Dose 40 MG; Start 03/09/17 at 06:00 Sertraline HCl (Zoloft) 50 mg DAILY PO Last administered on 03/13/17 08:17; Admin Dose 50 MG; Start 03/09/17 at 09:00 Zolpidem Tartrate (Ambien) 10 mg HS PRN PO INSOMNIA Last administered on 22:15; Admin Dose 10 MG; Start 03/08/17 at 17:30 Diagnostic Test (Pha) (Accu-Chek) 1 ea 02 XX ; Start 03/09/17 at 02:00 Miscellaneous Information 1 ea NOTE XX ; Start 03/08/17 at 18:00 Glucose (Glutose) 15 gm Q15M PRN PO DECREASED GLUCOSE; Start 03/08/17 at 18:00 Glucose (Glutose) 22.5 gm Q15M PRN PO DECREASED GLUCOSE; Start 03/08/17 at 18:00 Dextrose (D50w Syringe) 25 ml Q15M PRN IV DECREASED GLUCOSE; Start 03/08/17 at 18:00 Dextrose (D50w Syringe) 50 ml Q15M PRN IV DECREASED GLUCOSE; Start 03/08/17 at 18:00 Glucagon (Glucagen) 1 mg Q15M PRN IM DECREASED GLUCOSE; Start 03/08/17 at 18:00 Glucose (Glutose) 15 gm Q15M PRN BUCCAL DECREASED GLUCOSE; Start 03/08/17 at 18: 00 Oxycodone HCl (Roxicodone) 10 mg Q6H PRN PO PAIN Last administered on 08:22; Admin Dose 10 MG; Start 03/09/17 at 13:00 Acetaminophen/ Hydrocodone Bitart ([place] (10/325)) 2 tab Q3 PRN PO severe pain Last administered on 03/13/17 10:08; Admin Dose 2 TAB; Start 03/12/17 at 12:00 Assessment/Plan Additional Assessment/Plan rehab- Left TKR Continue rehab therapy plan Pain- improving HTN BIN ALMANZA MD Mar 13, 2017 11:55
[2017-03-13] MEDS: RIVAROXABAN 10 MG TABLET PO SCH (16:24)
[2017-03-13] MEDS: ATORVASTATIN 40 MG TAB PO SCH (20:37)
[2017-03-13] MEDS: ZOLPIDEM 5 MG TAB PO PRN (22:49)
[2017-03-14] MEDS: ACCUCHECK AT 2AM (Patients on SS coverage) XX SCH (01:40)
[2017-03-14] MEDS: PANTOPRAZOLE (EC) 40 MG TAB PO SCH (06:00)
[2017-03-14] MEDS: HYDROCODONE/APAP (10/325) TAB PO PRN ×6 (06:51→22:22)
[2017-03-14 07:30] VITALS: BP 125/65; RESP 18
[2017-03-14] MEDS: metFORMIN 500 MG TAB PO SCH ×2 (08:12→17:07)
[2017-03-14] MEDS: oxyCODONE 5 MG TAB PO PRN ×3 (08:14→21:20)
[2017-03-14] MEDS: Insulin NOVOLOG SS MODERATE Algorithm (SS with meals and bedtime) SC SCH ×4 (08:17→21:00)
[2017-03-14] MEDS: BUSPIRONE 5 MG TAB PO SCH ×2 (08:21→21:01)
[2017-03-14] MEDS: SERTRALINE 50 MG TAB PO SCH (08:21)
[2017-03-14] MEDS: MELOXICAM 15 MG TAB PO SCH (08:21)
--- NOTE | 2017-03-14 11:16 | PN ---
DATE: 03/14/2017 SUBJECTIVE: The patient is stable, no acute events overnight. No fevers, chills, nausea or vomitin g. No shortness of breath. OBJECTIVE: VITAL SIGNS: Blood pressure 125/65, respiration 18, pulse 70, temperature 98.3. HEENT: Head is normocephalic. NECK: Supple. HEART: Regular rate. LUNGS: Diminished breath sounds at base. ABDOMEN: Soft, nontender to palpation without rebound or guarding. EXTREMITIES: Negative for clubbing, cyanosis, no edema. DERMATOLOGIC: No rashes. MUSCULOSKELETAL: The patient has dressing over left knee clean, dry and intact. MEDICATIONS: Patient medications have been reviewed. LABORATORY DATA: Has been reviewed. No new labs. ASSESSMENT AND PLAN: 1. Status post left knee replacement. The patient is currently stable. Continue PT, OT. 2. Continue to monitor hemoglobin and hematocrit levels. 3. Hypertension. Continue blood pressure regimen. 4. Dyslipidemia. Continue statin therapy. 5. Diabetes. Continue Accu-Cheks and sliding scale. 6. Depression. Continue current medical management. 7. Gastrointestinal and deep venous thrombosis prophylaxis. Continue proton pump inhibitors and Xa relto. Dictated By: LINDSEY TODD DO NR/NTS Conf#: [id number] DID#: [id number]
--- NOTE | 2017-03-14 12:33 | CONS ---
Date/Time of Note Date/Time of Note DATE: 03/14/17 TIME: 12:32 Consult Date/Type/Reason Admit Date/Time Mar 08, 2017 at 16:26 Subjective feeling much better today Objective pulm-cta abd-soft sba ambulation Vital Signs Date Time Temp Pulse Resp B/P Pulse Ox O2 Delivery O2 Flow Rate FiO2 03/14/17 07:30 99.3 90 18 125/65 95 Intake and Output 03/13/17 03/13/17 03/14/17 15:00 23:00 07:00 Intake Total 1650 ml 790 ml Output Total 650 ml 250 ml Balance 1000 ml 540 ml Results/Medications Result Diagram: 03/12/17 0549 03/12/17 0549 Results 24 hrs Laboratory Tests Test 03/13/17 17:21 03/13/17 21:21 03/14/17 07:39 03/14/17 12:09 Bedside Glucose 111 128 158 112 Medications Current Medications Acetaminophen/ Hydrocodone Bitart ([place] (10/325)) 1 tab Q4H PRN PO PAIN Last administered on 03/09/17 19:09; Admin Dose 1 TAB; Start 03/08/17 at 17:00 Rivaroxaban (Xarelto) 10 mg DAILY@17 PO Last administered on 03/13/17 16:24; Admin Dose 10 MG; Start 03/08/17 at 17:30 Atorvastatin Calcium (Lipitor) 40 mg HS PO Last administered on 03/13/17 20:37 ; Admin Dose 40 MG; Start 03/08/17 at 21:00 Buspirone HCl (Buspar) 15 mg BID PO Last administered on 03/14/17 08:21; Admin Dose 15 MG; Start 03/08/17 at 21:00 Hydroxyzine HCl (Atarax) 10 mg Q6H PRN PO ITCHING; Start 03/08/17 at 17:30 Meloxicam (Mobic) 15 mg DAILY PO Last administered on 03/14/17 08:21; Admin Dose 15 MG; Start 03/09/17 at 09:00 Pantoprazole (Protonix Tab) 40 mg DAILY@06 PO Last administered on 03/14/17 06 :00; Admin Dose 40 MG; Start 03/09/17 at 06:00 Sertraline HCl (Zoloft) 50 mg DAILY PO Last administered on 03/14/17 08:21; Admin Dose 50 MG; Start 03/09/17 at 09:00 Zolpidem Tartrate (Ambien) 10 mg HS PRN PO INSOMNIA Last administered on 22:49; Admin Dose 10 MG; Start 03/08/17 at 17:30 Diagnostic Test (Pha) (Accu-Chek) 1 ea 02 XX ; Start 03/09/17 at 02:00 Miscellaneous Information 1 ea NOTE XX ; Start 03/08/17 at 18:00 Glucose (Glutose) 15 gm Q15M PRN PO DECREASED GLUCOSE; Start 03/08/17 at 18:00 Glucose (Glutose) 22.5 gm Q15M PRN PO DECREASED GLUCOSE; Start 03/08/17 at 18:00 Dextrose (D50w Syringe) 25 ml Q15M PRN IV DECREASED GLUCOSE; Start 03/08/17 at 18:00 Dextrose (D50w Syringe) 50 ml Q15M PRN IV DECREASED GLUCOSE; Start 03/08/17 at 18:00 Glucagon (Glucagen) 1 mg Q15M PRN IM DECREASED GLUCOSE; Start 03/08/17 at 18:00 Glucose (Glutose) 15 gm Q15M PRN BUCCAL DECREASED GLUCOSE; Start 03/08/17 at 18: 00 Oxycodone HCl (Roxicodone) 10 mg Q6H PRN PO PAIN Last administered on 08:14; Admin Dose 10 MG; Start 03/09/17 at 13:00 Acetaminophen/ Hydrocodone Bitart ([place] (10/325)) 2 tab Q3 PRN PO severe pain Last administered on 03/14/17 10:08; Admin Dose 2 TAB; Start 03/12/17 at 12:00 Assessment/Plan Additional Assessment/Plan rehab- Left TKR Progressing well with treatment plan Pain- improving HTN BIN ALMANZA MD Mar 14, 2017 12:33
[2017-03-14] MEDS: RIVAROXABAN 10 MG TABLET PO SCH (17:07)
[2017-03-14 19:34] VITALS: BP 125/75; RESP 17
[2017-03-14] MEDS: hydrOXYzine HCL 10 MG TAB PO PRN (21:00)
[2017-03-14] MEDS: ATORVASTATIN 40 MG TAB PO SCH (21:00)
[2017-03-14] MEDS: ZOLPIDEM 5 MG TAB PO PRN (22:23)
[2017-03-15] MEDS: HYDROCODONE/APAP (10/325) TAB PO PRN ×6 (01:36→21:20)
[2017-03-15] MEDS: ACCUCHECK AT 2AM (Patients on SS coverage) XX SCH (02:00)
[2017-03-15] MEDS: PANTOPRAZOLE (EC) 40 MG TAB PO SCH (06:08)
[2017-03-15] MEDS: oxyCODONE 5 MG TAB PO PRN ×4 (06:08→19:47)
[2017-03-15 06:30] LABS: ADD SCAN DIFF NO
[2017-03-15 06:38] LABS: BASOPHILS % 0.2 % (0.0-2.0); EOSINOPHILS # 0.1 10^3/ul (0.0-0.5); EOSINOPHILS % 1.6 % (0.0-7.0); HEMATOCRIT 29.9 % (37.0-47.0); HEMOGLOBIN 9.5 g/dl (12.0-16.0); LYMPHOCYTES # 2.5 10^3/ul (0.8-2.9); LYMPHOCYTES % 29.9 % (15.0-51.0); MEAN CORPUSCULAR HEMOGLOBIN 30.7 pg (29.0-33.0); MEAN CORPUSCULAR HGB CONC 31.8 g/dl (32.0-37.0); MEAN CORPUSCULAR VOLUME 96.8 fl (82.0-101.0); MEAN PLATELET VOLUME 9.4 fl (7.4-10.4); MONOCYTE # 0.7 10^3/ul (0.3-0.9); MONOCYTES % 8.7 % (0.0-11.0); NEUTROPHILS % 59.1 % (39.0-77.0); PLATELET COUNT 445 10^3/UL (140-415); RED BLOOD COUNT 3.09 10^6/ul (4.20-5.40); RED CELL DISTRIBUTION WIDTH 13.3 % (11.5-14.5); WHITE BLOOD COUNT 8.4 10^3/ul (4.8-10.8)
[2017-03-15] MEDS: Insulin NOVOLOG SS MODERATE Algorithm (SS with meals and bedtime) SC SCH ×4 (07:35→21:00)
[2017-03-15 07:39] LABS: CREATININE 0.68 mg/dl (0.44-1.00); PHOSPHORUS 4.5 mg/dl (2.5-4.9); POTASSIUM 4.5 mmol/L (3.5-5.1)
[2017-03-15] MEDS: metFORMIN 500 MG TAB PO SCH ×3 (08:19→17:55)
[2017-03-15] MEDS: BUSPIRONE 5 MG TAB PO SCH ×2 (08:31→19:45)
[2017-03-15] MEDS: SERTRALINE 50 MG TAB PO SCH (08:31)
[2017-03-15] MEDS: MELOXICAM 15 MG TAB PO SCH (08:31)
--- NOTE | 2017-03-15 11:08 | PN ---
DATE: 03/15/2017 SUBJECTIVE: The patient is stable, no acute events overnight. No fevers, chills, nausea or vomitin g. No shortness of breath. OBJECTIVE: VITAL SIGNS: Blood pressure is 125/75, respirations 17, pulse 88, temperature 97.5. HEENT: Head is normocephalic. NECK: Supple. HEART: Regular rate. LUNGS: Show diminished breath sounds at base. ABDOMEN: Soft, nontender to palpation without rebound or guarding. EXTREMITIES: Negative for clubbing, cyanosis, edema. DERMATOLOGIC: No rashes. MUSCULOSKELETAL: No joint effusions. NEUROLOGIC: No change in exam. MEDICATIONS: The patient's medications have been reviewed. LABORATORY DATA: Showed sodium 136, potassium 4.5, BUN 15, creatinine 0.68. White count 8.4, hemog lobin 9.5, hematocrit 29.9, platelet count is 445. ASSESSMENT AND PLAN: 1. Status post left knee replacement. The patient is currently stable. Continue PT, OT. 2. Anemia. Hemoglobin level stable, continue to monitor. 3. Hypertension. Continue current blood pressure regimen. 4. Dyslipidemia. Continue statin therapy. 5. Diabetes. Continue current insulin regimen. 6. Depression. Continue current medical management. 7. Gastrointestinal and deep venous thrombosis prophylaxis. Continue proton pump inhibitor and Xar elto. Dictated By: LINDSEY MERCER/KACI Conf#: [id number] DID#: [id number]
--- NOTE | 2017-03-15 11:40 | CONS ---
Date/Time of Note Date/Time of Note DATE: 03/15/17 TIME: 11:39 Consult Date/Type/Reason Admit Date/Time Mar 08, 2017 at 16:26 Subjective Feeling much better Objective pulm-cta abd-soft amb sba 150 feet Vital Signs Date Time Temp Pulse Resp B/P Pulse Ox O2 Delivery O2 Flow Rate FiO2 03/14/17 19:34 97.5 88 17 125/75 97 Intake and Output 03/14/17 03/14/17 03/15/17 14:59 22:59 06:59 Intake Total 360 ml 860 ml 500 ml Output Total 850 ml 350 ml Balance -490 ml 860 ml 150 ml Results/Medications Result Diagram: 03/15/17 0601 03/15/17 0601 Results 24 hrs Laboratory Tests Test 03/14/17 12:09 03/14/17 17:13 03/14/17 20:56 03/15/17 06:01 Bedside Glucose 112 172 121 White Blood Count 8.4 Red Blood Count 3.09 L Hemoglobin 9.5 L Hematocrit 29.9 L Mean Corpuscular Volume 96.8 Mean Corpuscular Hemoglobin 30.7 Mean Corpuscular Hemoglobin Concent 31.8 L Red Cell Distribution Width 13.3 Platelet Count 445 H Mean Platelet Volume 9.4 Neutrophils % 59.1 Lymphocytes % 29.9 Monocytes % 8.7 Eosinophils % 1.6 Basophils % 0.2 Nucleated Red Blood Cells % 0.0 Neutrophils # 5.0 Lymphocytes # 2.5 Monocytes # 0.7 Eosinophils # 0.1 Basophils # 0.0 Nucleated Red Blood Cells # 0.0 Sodium Level 136 Potassium Level 4.5 Chloride Level 100 Carbon Dioxide Level 32 H Anion Gap 9 Blood Urea Nitrogen 15 Creatinine 0.68 Glucose Level 126 Calcium Level 9.0 Phosphorus Level 4.5 Magnesium Level 2.0 Test 03/15/17 07:35 Bedside Glucose 118 Medications Current Medications Acetaminophen/ Hydrocodone Bitart ([place] (10/325)) 1 tab Q4H PRN PO PAIN Last administered on 03/09/17 19:09; Admin Dose 1 TAB; Start 03/08/17 at 17:00 Rivaroxaban (Xarelto) 10 mg DAILY@17 PO Last administered on 03/14/17 17:07; Admin Dose 10 MG; Start 03/08/17 at 17:30 Atorvastatin Calcium (Lipitor) 40 mg HS PO Last administered on 03/14/17 21:00 ; Admin Dose 40 MG; Start 03/08/17 at 21:00 Buspirone HCl (Buspar) 15 mg BID PO Last administered on 03/15/17 08:31; Admin Dose 15 MG; Start 03/08/17 at 21:00 Hydroxyzine HCl (Atarax) 10 mg Q6H PRN PO ITCHING Last administered on 21:00; Admin Dose 10 MG; Start 03/08/17 at 17:30 Meloxicam (Mobic) 15 mg DAILY PO Last administered on 03/15/17 08:31; Admin Dose 15 MG; Start 03/09/17 at 09:00 Pantoprazole (Protonix Tab) 40 mg DAILY@06 PO Last administered on 03/15/17 06 :08; Admin Dose 40 MG; Start 03/09/17 at 06:00 Sertraline HCl (Zoloft) 50 mg DAILY PO Last administered on 03/15/17 08:31; Admin Dose 50 MG; Start 03/09/17 at 09:00 Zolpidem Tartrate (Ambien) 10 mg HS PRN PO INSOMNIA Last administered on 22:23; Admin Dose 10 MG; Start 03/08/17 at 17:30 Diagnostic Test (Pha) (Accu-Chek) 1 ea 02 XX ; Start 03/09/17 at 02:00 Miscellaneous Information 1 ea NOTE XX ; Start 03/08/17 at 18:00 Glucose (Glutose) 15 gm Q15M PRN PO DECREASED GLUCOSE; Start 03/08/17 at 18:00 Glucose (Glutose) 22.5 gm Q15M PRN PO DECREASED GLUCOSE; Start 03/08/17 at 18:00 Dextrose (D50w Syringe) 25 ml Q15M PRN IV DECREASED GLUCOSE; Start 03/08/17 at 18:00 Dextrose (D50w Syringe) 50 ml Q15M PRN IV DECREASED GLUCOSE; Start 03/08/17 at 18:00 Glucagon (Glucagen) 1 mg Q15M PRN IM DECREASED GLUCOSE; Start 03/08/17 at 18:00 Glucose (Glutose) 15 gm Q15M PRN BUCCAL DECREASED GLUCOSE; Start 03/08/17 at 18: 00 Oxycodone HCl (Roxicodone) 10 mg Q6H PRN PO PAIN Last administered on 06:08; Admin Dose 10 MG; Start 03/09/17 at 13:00 Acetaminophen/ Hydrocodone Bitart ([place] (10325)) 2 tab Q3 PRN PO severe pain Last administered on 03/15/17 08:35; Admin Dose 2 TAB; Start 03/12/17 at 12:00 Assessment/Plan Additional Assessment/Plan rehab- Left TKR Anticipate dc tomorrow Pain- cont current meds HTN DM BIN STEEL MD Mar 15, 2017 11:40
[2017-03-15] MEDS: RIVAROXABAN 10 MG TABLET PO SCH (17:54)
[2017-03-15] MEDS: ATORVASTATIN 40 MG TAB PO SCH (19:45)
[2017-03-15 20:01] VITALS: BP 131/69; RESP 18
[2017-03-15] MEDS: ZOLPIDEM 5 MG TAB PO PRN (22:23)
[2017-03-16] MEDS: ACCUCHECK AT 2AM (Patients on SS coverage) XX SCH (02:00)
[2017-03-16] MEDS: hydrOXYzine HCL 10 MG TAB PO PRN (02:32)
[2017-03-16] MEDS: HYDROCODONE/APAP (10/325) TAB PO PRN ×3 (02:32→13:44)
[2017-03-16] MEDS: PANTOPRAZOLE (EC) 40 MG TAB PO SCH (06:25)
[2017-03-16] MEDS: oxyCODONE 5 MG TAB PO PRN ×2 (06:25→12:11)
[2017-03-16] MEDS: Insulin NOVOLOG SS MODERATE Algorithm (SS with meals and bedtime) SC SCH ×2 (07:35→12:00)
[2017-03-16] MEDS: BUSPIRONE 5 MG TAB PO SCH (08:10)
[2017-03-16] MEDS: MELOXICAM 15 MG TAB PO SCH (08:10)
[2017-03-16] MEDS: SERTRALINE 50 MG TAB PO SCH (08:10)
[2017-03-16] MEDS: metFORMIN 500 MG TAB PO SCH (08:11)
[2017-03-16 08:28] VITALS: BP 115/72; RESP 18
--- NOTE | 2017-03-16 11:37 | PN ---
Date/Time of Note Date/Time of Note DATE: 03/16/17 TIME: 11:37 Assessment/Plan VTE Prophylaxis VTE Prophylaxis Intervention: other Lines/Catheters Urinary Cath still in place: No Assessment/Plan Assessment/Plan 1. Status post left knee replacement. The patient is currently stable. Continue PT, OT. 2. Anemia. Hemoglobin level stable, continue to monitor. 3. Hypertension. Continue current blood pressure regimen. 4. Dyslipidemia. Continue statin therapy. 5. Diabetes. Continue current insulin regimen. 6. Depression. Continue current medical management. 7. Gastrointestinal and deep venous thrombosis prophylaxis. Continue proton pump inhibitor and Xarelto. Subjective 24 Hr Interval Summary Free Text/Dictation SUBJECTIVE: The patient is stable, no acute events overnight. No fevers, chills, nausea or vomiting. No shortness of breath. OBJECTIVE: HEENT: Head is normocephalic. NECK: Supple. HEART: Regular rate. LUNGS: Show diminished breath sounds at base. ABDOMEN: Soft, nontender to palpation without rebound or guarding. EXTREMITIES: Negative for clubbing, cyanosis, edema. DERMATOLOGIC: No rashes. MUSCULOSKELETAL: No joint effusions. NEUROLOGIC: No change in exam. MEDICATIONS: The patient's medications have been reviewed. Exam/Review of Systems Vital Signs Vitals Vital Signs Date Time Temp Pulse Resp B/P Pulse Ox O2 Delivery O2 Flow Rate FiO2 03/16/17 08:28 98.1 84 18 115/72 96 Intake and Output 03/15/17 03/15/17 03/16/17 15:00 23:00 07:00 Intake Total 1340 ml 920 ml Output Total 200 ml Balance 1140 ml 920 ml Results Result Diagram: 03/15/17 0601 03/15/17 0601 Results 24 hrs Laboratory Tests Test 03/15/17 12:08 03/15/17 17:18 03/15/17 21:20 03/16/17 07:36 Bedside Glucose 85 111 97 120 Medications Medications Current Medications Acetaminophen/ Hydrocodone Bitart ([place] (10/325)) 1 tab Q4H PRN PO PAIN Last administered on 03/09/17 19:09; Admin Dose 1 TAB; Start 03/08/17 at 17:00 Rivaroxaban (Xarelto) 10 mg DAILY@17 PO Last administered on 03/15/17 17:54; Admin Dose 10 MG; Start 03/08/17 at 17:30 Atorvastatin Calcium (Lipitor) 40 mg HS PO Last administered on 03/15/17 19:45 ; Admin Dose 40 MG; Start 03/08/17 at 21:00 Buspirone HCl (Buspar) 15 mg BID PO Last administered on 03/16/17 08:10; Admin Dose 15 MG; Start 03/08/17 at 21:00 Hydroxyzine HCl (Atarax) 10 mg Q6H PRN PO ITCHING Last administered on 02:32; Admin Dose 10 MG; Start 03/08/17 at 17:30 Meloxicam (Mobic) 15 mg DAILY PO Last administered on 03/16/17 08:10; Admin Dose 15 MG; Start 03/09/17 at 09:00 Pantoprazole (Protonix Tab) 40 mg DAILY@06 PO Last administered on 03/16/17 06 :25; Admin Dose 40 MG; Start 03/09/17 at 06:00 Sertraline HCl (Zoloft) 50 mg DAILY PO Last administered on 03/16/17 08:10; Admin Dose 50 MG; Start 03/09/17 at 09:00 Zolpidem Tartrate (Ambien) 10 mg HS PRN PO INSOMNIA Last administered on 22:23; Admin Dose 10 MG; Start 03/08/17 at 17:30 Diagnostic Test (Pha) (Accu-Chek) 1 ea 02 XX ; Start 03/09/17 at 02:00 Miscellaneous Information 1 ea NOTE XX ; Start 03/08/17 at 18:00 Glucose (Glutose) 15 gm Q15M PRN PO DECREASED GLUCOSE; Start 03/08/17 at 18:00 Glucose (Glutose) 22.5 gm Q15M PRN PO DECREASED GLUCOSE; Start 03/08/17 at 18:00 Dextrose (D50w Syringe) 25 ml Q15M PRN IV DECREASED GLUCOSE; Start 03/08/17 at 18:00 Dextrose (D50w Syringe) 50 ml Q15M PRN IV DECREASED GLUCOSE; Start 03/08/17 at 18:00 Glucagon (Glucagen) 1 mg Q15M PRN IM DECREASED GLUCOSE; Start 03/08/17 at 18:00 Glucose (Glutose) 15 gm Q15M PRN BUCCAL DECREASED GLUCOSE; Start 03/08/17 at 18: 00 Oxycodone HCl (Roxicodone) 10 mg Q6H PRN PO PAIN Last administered on 06:25; Admin Dose 10 MG; Start 03/09/17 at 13:00 Acetaminophen/ Hydrocodone Bitart ([place] (10/325)) 2 tab Q3 PRN PO severe pain Last administered on 03/16/17 08:17; Admin Dose 2 TAB; Start 03/12/17 at 12:00 SHAQUILLE FREITAS DO Mar 16, 2017 11:37
== END 2017-03-16 14:30 | disposition home health service (06) | DRG 561 ==
LOC: VRC 16:26
PROVIDERS: ADMIT Physical Medicine & Rehabilitation; ATTEND Internal Medicine Nephrology
DX: Z47.1 Aftercare following joint replacement surgery (principal); I10 Essential (primary) hypertension; E78.5 Hyperlipidemia, unspecified; E11.9 Type 2 diabetes mellitus without complications; D64.9 Anemia, unspecified; Z96.652 Presence of left artificial knee joint; E66.9 Obesity, unspecified; Z68.32 Body mass index [BMI] 32.0-32.9, adult; G89.18 Other acute postprocedural pain; G89.4 Chronic pain syndrome; F41.8 Other specified anxiety disorders
CPT/HCPCS: 80048; 80053; 81001; 81003; 82962; 83735; 84100; 85025; 87081; 87086; 97110; 97116; 97150; 97163; 97167; 97530; 97535; J1815